=== PATIENT | male | born 1955 | race Caucasian/White ===

== ENCOUNTER 2021-11-12 13:15 | Emergency (ER) | payer OTHER ==
[2021-11-12 13:38] VITALS: BP 133/67; PULSE 78; TEMP 98.2; BMI 24.5
[2021-11-12] MEDS ORDERED: DEXAMETHASONE SOD PHOSPHATE 10 MG/1 ML VIAL IVPUSH ONE (14:04)
[2021-11-12 16:57] LABS: THROAT:GRP A STREP NOT DETECTED (NOTDETECTED)
[2021-11-13 13:07] LABS: SARS-CoV-2 NAA Detected (Not Detected)
== END 2021-11-12 14:34 | disposition home or self-care (01) ==
LOC: FER 13:15
PROC: 3E033NZ Introduction of Analgesics, Hypnotics, Sedatives into Peripheral Vein, Percutaneous Approach (ICD-10-PCS; principal; 2021-11-12)
DX: J02.9 Acute pharyngitis, unspecified (principal); U07.1 COVID-19
CPT/HCPCS: 87651; 99283-25; C9803; J1100; U0003; U0005